=== PATIENT | female | born 1980 | race African-American/Black ===

== ENCOUNTER → 2017-11-05 | Emergency (ER) | payer SELFPAY ==
[~2017-11-05] VITALS: Ht 165.1 cm; Wt 146.6 kg
[~2017-11-05] MED LIST: IBUPROFEN 600 MG TAB PO STA; PRILOSEC OTC20 MG
--- OUTSIDE RECORDS SUMMARY | 2017-11-05 15:47 | XMS REPORT | Clinical Summary ---
Author Author [facility] Organization [facility] Address Unknown Phone Unavailable Care Team Providers Care Silo Operator Name Role Phone Mehnaz Woods MD PCP Allergies Active Allergy Reactions Severity Noted Date Comments No Known Drug Allergies 12/15/2015 Current Medications Prescription Sig. Disp. Refills Start End Date Status Date naproxen (NAPROSYN) 375 Take 1 tablet (375 mg 60 tablet 0 02/19/20 03/20/20 MG tablet total) by mouth 2 (two) 17 17 times a day with meals for 30 days. ondansetron ODT (ZOFRAN Take 1 tablet (4 mg 6 tablet 0 02/19/20 ODT) 4 MG disintegrating total) by mouth every 8 17 17 tablet (eight) hours as needed for nausea or vomiting for up to 6 days. Active Problems Problem Noted Date Anemia 12/15/2015 Asthma 12/15/2015 Dysmenorrhea 12/15/2015 Hodgkin's disease 12/15/2015 Morbid obesity 12/15/2015 Current smoker 12/15/2015 Upper respiratory infection 12/15/2015 History of depression 12/15/2015 History of diverticulitis 12/15/2015 History of heart disorder 12/15/2015 History of eye problem 12/15/2015 Encounters Date Type Specialty Care Team Description 02/18/2017 Emergency Emergency Medicine Elian Ewing DO Canker sore (Primary Dx) after 11/04/2016 Immunizations Name Dates Previously Given Next Due Tdap 04/29/2015 Family History Medical History Relation Name Comments Ovarian cancer Mother Relation Name Status Comments Mother Social History Tobacco Use Types Packs/Day Years Used Date Current Some Day Smoker 0.5 Alcohol Use Drinks/Week oz/Week Comments No Sex Assigned at Date Recorded Not on file Last Filed Vital Signs Vital Sign Reading Time Taken Blood Pressure 134/65 02/18/2017 8:40 AM CDT Pulse 76 02/18/2017 8:40 AM CDT Temperature 36.8 C (98.2 F) 02/18/2017 8:40 AM CDT Respiratory Rate 16 02/18/2017 8:40 AM CDT Oxygen Saturation 96% 02/18/2017 8:40 AM CDT Inhaled Oxygen - - Concentration Weight - - Height 166.4 cm (5' 5.5") 02/18/2017 8:39 AM CDT Body Mass Index - - Plan of Treatment Not on file Results Not on fileafter 11/04/2016 Insurance Payer Benefit Subscriber ID Type Phone Address Plan / Group AETNA AETNA xxxxxxxxxx HMO HMO,POS,EP O, MC/EC CVCP CVCP AETNA xxxxxxxxxx PPO [address] [place] [address]
== END | disposition home or self-care (01) ==
LOC: ER 15:45
DX: M79.671 Pain in right foot (principal); M77.31 Calcaneal spur, right foot; J45.909 Unspecified asthma, uncomplicated; Z85.71 Personal history of Hodgkin lymphoma; F17.210 Nicotine dependence, cigarettes, uncomplicated
CPT/HCPCS: 99283

== ENCOUNTER 2024-05-25 19:23 | Emergency (ER) | payer MEDICARE ==
[~2024-05-25] VITALS: Ht 165.1 cm; Wt 156.6 kg
[~2024-05-25 19:23] MED LIST changes: +AMOX TR-K CLV1 EAC2 PO; +BENZONATATE100 MG PO; +CLARITIN-D 241 EACH PO; +FLONASE ALLERG9.9 ML INH; -IBUPROFEN 600 MG TAB PO STA; +IBUPROFEN600 MG PO; +MECLIZINE HCL25 MG PO; +MUCINEX DM ER1 EAC1 PO; +ONDANSETRON ODT4 MG PO; +PROVENTIL HFA6.7 GM INH
[2024-05-25] MEDS ORDERED: CLARITIN-D 241 EACH PO (20:05)
[2024-05-25] MEDS ORDERED: IBUPROFEN200 MG PO (20:05)
[2024-05-25] MEDS ORDERED: NASACORT16.9 ML (20:05)
[2024-05-25 20:46] VITALS: PULSE 90; RESP 16; TEMP 98; O2SAT 97
== END 2024-05-25 20:52 | disposition home or self-care (01) ==
LOC: FSED 19:33
DX: R51.9 Headache, unspecified (principal); H83.03 Labyrinthitis, bilateral; R42 Dizziness and giddiness; R09.81 Nasal congestion; E11.9 Type 2 diabetes mellitus without complications; M10.9 Gout, unspecified; G35 Multiple sclerosis; Z85.89 Personal history of malignant neoplasm of other organs and systems; Z87.19 Personal history of other diseases of the digestive system
CPT/HCPCS: 70450; 81025; 99283

== ENCOUNTER 2024-07-03 10:21 | Emergency (ER) | payer MEDICARE ==
[~2024-07-03] VITALS: Ht 165.1 cm; Wt 156.5 kg
[~2024-07-03 10:21] MED LIST changes: +IBUPROFEN200 MG PO; +NASACORT16.9 ML
[2024-07-03 11:45] LABS: BASOPHILS % 0.4 % (0.0-1.0); EOSINOPHILS # (AUTO) 0.2 (0.0-0.4); EOSINOPHILS % 2.2 % (0.0-6.0); HEMATOCRIT 42.5 % (34.2-44.1); HEMOGLOBIN 12.5 g/dL (12.0-16.0); LYMPHOCYTES % 21.4 % (18.0-39.1); MEAN CORPUSCULAR HEMOGLOBIN 25.3 pg (28-32); MEAN CORPUSCULAR HGB CONC 29.4 g/dL (31-35); MEAN CORPUSCULAR VOLUME 85.9 fL (81-99); MONOCYTES # (AUTO) 0.7 (0.2-0.8); MONOCYTES % 6.9 % (4.4-11.3); NEUTROPHILS # (AUTO) 6.5 (2.1-6.9); NEUTROPHILS % 68.5 % (38.7-80.0); PLATELET COUNT 250 x10e3/uL (140-360); RED BLOOD COUNT 4.95 x10e6/uL (3.6-5.1); RED CELL DISTRIBUTION WIDTH 13.9 % (11.7-14.4); WHITE BLOOD COUNT 9.55 x10e3/uL (4.8-10.8)
[2024-07-03 11:58] LABS: ALBUMIN 3.8 g/dL (3.5-5.0); ANION GAP 16.9 mmol/L (8-16); BILIRUBIN,TOTAL 0.4 mg/dL (0.2-1.2); CREATININE, SERUM 0.76 mg/dL (0.57-1.11); POTASSIUM 3.9 mmol/L (3.5-5.1); TOTAL PROTEIN 7.5 g/dL (6.5-8.1)
[2024-07-03] MEDS: METOCLOPRAMIDE HCL 10 MG/2ML VIAL IV ONE (12:56)
[2024-07-03 14:10] VITALS: PULSE 68; RESP 18; TEMP 97.3
[2024-07-03] MEDS ORDERED: REGLAN10 MG PO (14:32)
[2024-07-03 14:57] VITALS: BP 134/78; PULSE 79; RESP 18; TEMP 97.3; O2SAT 97
== END 2024-07-03 15:01 | disposition home or self-care (01) ==
LOC: ER 10:54
DX: R42 Dizziness and giddiness (principal); G35 Multiple sclerosis; E11.65 Type 2 diabetes mellitus with hyperglycemia; M10.9 Gout, unspecified; Z85.72 Personal history of non-Hodgkin lymphomas; Z87.19 Personal history of other diseases of the digestive system
CPT/HCPCS: 36415; 80053; 85025; 99284; J2765